=== PATIENT | female | born 1970 | race Caucasian/White ===

== ENCOUNTER 2017-01-31 05:24 | Day surgery (SDC) | payer BC, OTHER ==
[2017-01-27 08:21] VITALS: BMI 28.5
--- NOTE | 2017-01-31 01:49 | HP ---
History & Physical Update - History History: No Change - Physical Physical: No Change - Assessment Assessment: No Change - Plan Plan: No Change
[~2017-01-31 05:24] MED LIST: IBUPROFEN 800 MG/8 ML IJ IVPB PRN; LACTATED RINGERS SOLUTION 1,000 ML IV SCH
[2017-01-31] MEDS ORDERED: MIDAZOLAM HCL 2 MG/2 ML SINGLE DOSE VIAL ONE (07:52)
[2017-01-31] MEDS ORDERED: PROPOFOL 20 ML ONE ×2 (07:52)
[2017-01-31] MEDS ORDERED: ROCURONIUM BROMIDE 50 MG/5 ML VIAL ONE (07:52)
[2017-01-31] MEDS ORDERED: LIDOCAINE HCL/PF 2% SDV 5ML VIAL ONE (07:52)
[2017-01-31] MEDS ORDERED: SCOPOLAMINE HYDROBROMIDE 1 PATCH PATCH.TD72 ONE (07:58)
[2017-01-31] MEDS ORDERED: IBUPROFEN 800 MG/8 ML IJ IVPB ONE (07:58)
[2017-01-31] MEDS ORDERED: ceFAZolin SODIUM 1 GM VIAL IVPB ONE (08:27)
[2017-01-31] MEDS ORDERED: ONDANSETRON 4 MG/2 ML VIAL IVPUSH PRN (08:54)
[2017-01-31] MEDS ORDERED: oxyCODONE HCL 5 MG TABLET PO PRN (08:54)
[2017-01-31] MEDS ORDERED: ACETAMINOPHEN 1000 MG/100 ML VIAL (NON FORMULARY) IVPB ONE ×2 (09:15→10:00)
[2017-01-31] MEDS ORDERED: NEOSTIGMINE METHYLSULFATE 0.5 MG/ML - 10 ML MDV ONE (09:17)
[2017-01-31] MEDS ORDERED: GLYCOPYRROLATE 0.2 MG/1 ML VIAL ONE (09:17)
[2017-01-31] MEDS ORDERED: BUPIVACAINE HCL/PF 0.5% (5MG/ML) 10 ML VIAL IJ ONE (09:27)
[2017-01-31] MEDS ORDERED: ACETAMINOPHEN INJECTION 100 ML IVPB ONE (10:13)
[2017-01-31] MEDS ORDERED: oxyCODONE HCL 5 MG TABLET ONE (13:36)
[2017-01-31 13:37] VITALS: TEMP 98
[2017-01-31] MEDS ORDERED: oxyCODONE HCL 5 MG TABLET PO ONE (13:40)
[2017-01-31] MEDS ORDERED: OXYBUTYNIN CHLORIDE 5 MG TABLET PO ONE (13:40)
[2017-01-31 16:41] VITALS: BP 110/72; PULSE 65
--- NOTE | 2017-02-01 13:50 | OP ---
DATE OF OPERATION: 01/31/2017 PREOPERATIVE DIAGNOSIS: Right ovarian cyst. OPERATION: Right paratubal cystectomy and right salpingectomy. POSTOPERATIVE DIAGNOSIS: Right paratubal cyst. SURGEON: Татьяна Hoyos MD DIET THERAPIST: Nakita Bhatia DO ANESTHESIA: General. ANESTHESIOLOGIST: Radha Graff MD DESCRIPTION OF PROCEDURE: The patient was taken to the operating room, placed in dorsal lithotomy position, prepped and draped in the usual sterile fashion. Timeout was performed in accordance with hospital regulation. Garcia catheter was inserted into the bladder. Attention was then drawn to the umbilicus where an 8-mm umbilical incision was made. Veress needle was inserted into the cavity. Approximately 3-4 L of CO2 was insufflated in the cavity. Veress needle was then removed and an 8-mm trocar was then inserted. Laparoscope and camera were attached. Two other trocars were inserted in the left and 2 on the right, 2 parallel to each other on the left. In the upper abdomen a 5-mm incision was made and AirSeal cannula was inserted, and 8-mm trocar was inserted parallel to the umbilicus. On the left side, 2 parallel incisions were made 8 mm apart. The scalpel was then used to make an 8-mm incision. Trocars were inserted under direct visualization. Patient was placed in steep Trendelenburg, and the da Ludwin robot was then side docked to the patient's bedside. Trocars were then inserted and a fenestrated bipolar was inserted on the right and Endoshears were inserted on the right, and [place] inserted on the left. Control of the console was then done. Visualization revealed a right large paratubal cyst about 10 cm. Ovaries were noted to be normal both on the left and right side. [place] was then used to make a coagulated incision in the cyst, and cyst was then repaired. Tubal cyst was then removed. Tube was also removed on the right. Using bipolar cautery and Endoshears, cutting and cauterization of the stumps were done. Right tube was removed and right paratubal cyst was also removed. Visualization revealed normal ovaries and a normal left tube. CO2 was then removed abdomen after procedure was done and after specimen was removed. Incisions were then closed 4-0 Biosyn subcuticular fashion. Wound was washed and dressed. Patient tolerated the procedure well. Estimated blood loss 5 mL. ТАТЬЯНА HOYOS M.D. [id number]
--- NOTE | 2017-02-01 14:49 | PATH ---
Surgical Pathology Report Patient Name: MICHELLE GALEANO [facility]. Rec. #: [id number] /Age/Gender: 1970 (Age: 46) / F Account: [id number] Location: [facility] SURGICAL Taken: 01/31/2017 Received: 01/31/2017 Reported: 02/01/2017 Physicians: Salma Church M.D. Specimen(s) Received FALLOPIAN TUBE RIGHT AND PARATUBAL CYST Clinical History Ovarian cyst Final Diagnosis FALLOPIAN TUBE AND PARATUBAL CYST, RIGHT, SALPINGECTOMY: BENIGN SEROUS CYST AND BENIGN FALLOPIAN TUBE WITH FIBROUS ADHESIONS. Electronically Signed Sharad Augustine M.D. Gross Description Received in formalin labeled "right paratubal cyst and tube" is a 2.0 cm in greatest dimension focally disrupted cyst with attached fimbria. Sectioning reveals a focal fallopian tube lumen. The inner lining of the cyst is smooth. Also received within the same container is a 3 cm in length portion of fallopian tube. The outer surface is kay-hickey and smooth. Sectioning reveals unremarkable lumen. There is a 3.5 x 2.8 x 1.7 cm additional portion of focally disrupted cyst received within the same container. The outer surface of the cyst is kay and smooth. The inner lining appears smooth. Operational Communication Chief sections are submitted in 5 cassettes as follows: 1-fimbria; 2-fallopian tube lumen with attached paratubal cyst; 3-sections from separately received portion of fallopian tube; 6-4-[id number] from separately received cyst. /01/31/201701/31/2017
== END 2017-01-31 15:30 | disposition home or self-care (01) ==
LOC: JASU-SURG 05:24
PROVIDERS: ATTEND Obstetrics & Gynecology
PROC: 0UB54ZZ Excision of Right Fallopian Tube, Percutaneous Endoscopic Approach (ICD-10-PCS; 2017-01-31)
PROC: 8E0W4CZ Robotic Assisted Procedure of Trunk Region, Percutaneous Endoscopic Approach (ICD-10-PCS; 2017-01-31)
PROC: 0UB54ZZ Excision of Right Fallopian Tube, Percutaneous Endoscopic Approach (ICD-10-PCS; principal; 2017-01-31 08:00)
DX: N83.8 Other noninflammatory disorders of ovary, fallopian tube and broad ligament (principal)
CPT/HCPCS: 58661; 58662; S2900; 84703; 88305-TC; 94760

== ENCOUNTER 2020-06-04 16:40 | Emergency (ER) | payer OTHER | END 2020-06-04 16:48 | disposition home or self-care (01) | LOC: JVIRT 16:40 | DX: Z03.818 Encounter for observation for suspected exposure to other biological agents ruled out (principal) | CPT/HCPCS: C9803; Q3014-GT; U0003 ==

== ENCOUNTER 2020-06-16 18:11 | Emergency (ER) | payer OTHER | END 2020-06-16 18:48 | disposition home or self-care (01) | LOC: JVIRT 18:11 | DX: Z03.818 Encounter for observation for suspected exposure to other biological agents ruled out (principal) | CPT/HCPCS: C9803; G2012-GT; U0003 ==

== ENCOUNTER 2021-02-27 13:53 | Emergency (ER) | payer BC ==
[2021-02-28 14:07] LABS: SARS-CoV-2 NAA Not Detected (Not Detected)
== END 2021-02-27 14:55 | disposition home or self-care (01) ==
LOC: JVIRT 13:53
DX: Z20.822 Contact with and (suspected) exposure to COVID-19 (principal)
CPT/HCPCS: C9803; Q3014-GT; U0003; U0005